=== PATIENT | male | born 1995 | race African-American/Black ===

== ENCOUNTER → 2022-05-26 | Outpatient (REF) | payer SELFPAY ==
[2022-05-26 19:19] LABS: GC DNA AMPLIFICATION NEGATIVE (NEGATIVE)
== END ==
LOC: M LAB REF 15:55
PROVIDERS: ATTEND Physician Assistant
DX: R30.0 Dysuria (principal)

== ENCOUNTER 2025-01-15 11:25 | Emergency (ER) | payer OTHER, SELFPAY ==
[~2025-01-15] VITALS: Ht 172.7 cm; Wt 92.2 kg
[2025-01-15 12:21] LABS: EOS # 0.1 10^3/uL (0.0-0.5); EOS % 2.9 % (0.0-3.0); HEMATOCRIT 45.4 % (42.0-52.0); HEMOGLOBIN 15.1 g/dl (13.5-17.5); LYMPH # 2.5 10^3/uL (1.5-5.0); LYMPH % 59.9 % (24.0-44.0); MEAN CORPUSCULAR HEMOGLOBIN 30.1 pg (27.0-33.0); MEAN CORPUSCULAR HGB CONC 33.3 g/dl (32.0-36.5); MEAN CORPUSCULAR VOLUME 90.6 fl (80.0-96.0); MONO # 0.4 10^3/uL (0.0-0.8); MONO % 10.5 % (2.0-8.0); NEUTROPHILS # 1.1 10^3/uL (1.5-8.5); NEUTROPHILS % 25.5 % (36.0-66.0); PLATELET COUNT, AUTOMATED 250 10^3/uL (150-450); RED BLOOD COUNT 5.01 10^6/uL (4.30-6.10); WHITE BLOOD COUNT 4.2 10^3/uL (4.0-10.0)
[2025-01-15 12:30] LABS: INR 0.92; PROTHROMBIN TIME 12.7 SECONDS (12.5-14.5)
[2025-01-15 12:33] LABS: CK-MB VALUE MASS 2.6 NG/ML (<3.6)
[2025-01-15 12:34] LABS: LIPASE 27 U/L (12-53)
[2025-01-15 12:36] LABS: ALBUMIN 4.5 G/DL (3.2-5.2); ALKALINE PHOSPHATASE 88 U/L (40-129); ALT/SGPT 41 U/L (7.0-40); AST/SGOT 31 U/L (<34); BILIRUBIN,DIRECT 0.2 MG/DL (<0.4); BILIRUBIN,TOTAL 0.9 MG/DL (0.3-1.2); BLOOD UREA NITROGEN 15 MG/DL (9-23); CALCIUM LEVEL 9.7 MG/DL (8.5-10.1); CARBON DIOXIDE LEVEL 28 MMOL/L (20-31); CHLORIDE LEVEL 105 MMOL/L (98-107); CREATININE FOR GFR 1.29 MG/DL (0.70-1.30); GLOMERULAR FILTRATION RATE > 60.0 (>60); GLUCOSE, FASTING 94 MG/DL (60-100); POTASSIUM SERUM 4.1 MMOL/L (3.5-5.1); SODIUM LEVEL 143 MMOL/L (136-145)
[2025-01-15 12:45] LABS: CPK CREATINE PHOSPHOKINASE 693 U/L (46-171); MB/CK RELATIVE INDEX 0.37 (< OR =4)
[2025-01-15] MEDS ORDERED: ISOVUE-370 76% 100ML VIAL As Ordered ONE (17:34)
[2025-01-15] MEDS: NS (Normal Saline) 0.9% 1,000 ML IV ONE (17:59)
[2025-01-15] MEDS: KETOROLAC 30 MG/ML 1ML VIAL IV ONE (18:00)
[2025-01-15] MEDS ORDERED: NAPR-837 PO (18:49)
[2025-01-15 18:55] VITALS: TEMP 97; O2SAT 99
[2025-01-15 19:02] VITALS: BP 134/82
== END 2025-01-15 19:20 | disposition home or self-care (01) ==
LOC: M ED 11:25
DX: R07.89 Other chest pain (principal); R74.8 Abnormal levels of other serum enzymes; R91.8 Other nonspecific abnormal finding of lung field; F10.10 Alcohol abuse, uncomplicated; Z79.899 Other long term (current) drug therapy
CPT/HCPCS: 71045; 71275; 80048; 80076; 82550; 82553; 83690; 84484; 85025; 85610; 93005; 93041; 94760; 96374; 99285; J1885; Q9967

== ENCOUNTER 2025-01-17 08:54 | Emergency (ER) | payer OTHER ==
[~2025-01-17] VITALS: Ht 165.1 cm; Wt 91.6 kg
[~2025-01-17 08:54] MED LIST: NAPR-837 PO
[2025-01-17] MEDS ORDERED: BENA25CA4 PO ×2 (09:03→12:53)
[2025-01-17] MEDS: predniSONE 20 MG TAB PO ONE (11:42)
[2025-01-17] MEDS: FAMOTIDINE 20 MG TAB PO ONE (11:42)
[2025-01-17] MEDS: diphenhydrAMINE 50MG CAP PO ONE (11:42)
[2025-01-17 12:00] VITALS: BP 141/94; TEMP 98; O2SAT 99
[2025-01-17] MEDS ORDERED: PEPC1TAB5 PO (12:53)
[2025-01-17] MEDS ORDERED: PRED20TA PO (12:53)
== END 2025-01-17 12:57 | disposition home or self-care (01) ==
LOC: M ED 08:54
DX: T78.40XA Allergy, unspecified, initial encounter (principal); Z79.52 Long term (current) use of systemic steroids; Z79.1 Long term (current) use of non-steroidal anti-inflammatories (NSAID); Z79.899 Other long term (current) drug therapy
CPT/HCPCS: 99283; J7512